=== PATIENT | female | born 1990 | race Caucasian/White ===

== ENCOUNTER 2017-03-22 12:21 | Emergency (ER) | payer MEDICAID, OTHER ==
[~2017-03-22] VITALS: Ht 162.6 cm; Wt 97.1 kg
[2017-03-22 15:55] VITALS: BP 130/77
== END 2017-03-22 17:22 | disposition home or self-care (01) ==
LOC: ER 12:21
DX: L02.31 Cutaneous abscess of buttock (principal); Z88.0 Allergy status to penicillin

== ENCOUNTER 2018-01-06 17:15 | Emergency (ER) | payer MEDICAID ==
[~2018-01-06] VITALS: Ht 165.1 cm; Wt 95.3 kg
[2018-01-06] MEDS ORDERED: cefTRIAXone SOD 1,000 MG VL IM ONE (19:30)
[2018-01-06] MEDS ORDERED: LIDOCAINE W/ EPINEPHRINE 1% 20ML VIAL IJ ONE (19:30)
[2018-01-06 19:47] VITALS: BP 127/85
== END 2018-01-06 20:00 | disposition home or self-care (01) ==
LOC: ER 17:18
DX: L02.31 Cutaneous abscess of buttock (principal); Z88.0 Allergy status to penicillin
CPT/HCPCS: 10060; 96372; 99283; J0696